=== PATIENT | male | born 1940 | race Caucasian/White ===

== ENCOUNTER 2022-10-01 17:01 | Observation (INO) ==
[2022-10-01 17:35] LABS: ABS Eosinophils 0.2 10^3/uL (0.0-0.5); ABS Lymphocytes 1.6 10^3/uL (1.0-4.8); ABS Monocytes 0.4 10^3/uL (0.0-1.1); ABS Neutrophils 4.2 10^3/uL (1.5-7.6); ABS Nucleated RBC 0.01 10^3/ul; Eosinophil % 2.5 %; Hematocrit 44.9 % (38-53); Hemoglobin 15.5 g/dL (13.2-16.3); Lymphocyte % 25.1 %; Mean Corpuscular Hemoglobin 30.3 pg (27-33); Mean Corpuscular Hgb Conc 34.4 g/dL (31-36); Mean Corpuscular Volume 88.1 fL (80-97); Mean Platelet Volume 7.5 fL (7.5-11.2); Nucleated Red Blood Cells % 0.2 /100 WBC (0.0-0.4); Platelet Count 214 10^3/uL (150-450); Red Cell Distribution Width 13.1 % (12-17); White Blood Count 6.5 10^3/uL (3.6-10.2)
[2022-10-01 17:40] LABS: INR 1.05 (0.88-1.18)
[2022-10-01 17:55] LABS: ALT 19 U/L (7-52); Albumin 4.1 g/dL (3.2-5.2); Albumin/Globulin Ratio 1.5 (1-3); Alkaline Phosphatase 112 U/L (35-149); Blood Urea Nitrogen 27 mg/dL (6-24); CO2 Carbon Dioxide 27 mmol/L (22-32); Calcium 9.1 mg/dL (8.6-10.3); Chloride 104 mmol/L (101-111); Creatinine, Serum 1.07 mg/dL (0.67-1.17); Globulin 2.7 g/dL (2-4); Glucose 114 mg/dL (70-100); Sodium 140 mmol/L (135-145); Total Protein 6.8 g/dL (6.4-8.9); eGFR CKD-EPI 70.2 (>60)
[2022-10-01 17:57] LABS: High Sens Troponin Baseline 20 pg/mL (<20)
[2022-10-01 17:59] LABS: Anion Gap 9 mmol/L (2-16)
[2022-10-01 18:56] LABS: Potassium Redraw 3.7 mmol/L (3.5-5.0)
[2022-10-01] MEDS ORDERED: hydrALAZINE 20 mg/ml 1 ML Vial IV IV SLOW PU ONE (19:47)
[2022-10-01] MEDS: Enoxaparin 40 MG/0.4 ML SYR SUBCUT SCH (20:25)
[2022-10-01] MEDS ORDERED: Potassium Chlor 20 meq TAB.ER PO ONE (20:33)
[2022-10-01 20:56] LABS: Magnesium 2.2 mg/dL (1.9-2.7)
[2022-10-01] MEDS ORDERED: Iohexol 350 (CONTRAST) 500 ML MDV IV ONE (21:12)
[2022-10-02 06:12] LABS: Hematocrit 45.3 % (38-53); Mean Corpuscular Hemoglobin 30.7 pg (27-33); Mean Corpuscular Hgb Conc 35.4 g/dL (31-36); Mean Corpuscular Volume 86.7 fL (80-97); Platelet Count 213 10^3/uL (150-450); Red Blood Count 5.23 10^6/uL (4.06-5.63); Red Cell Distribution Width 13.1 % (12-17); White Blood Count 6.2 10^3/uL (3.6-10.2)
[2022-10-02 06:25] LABS: Albumin 4.1 g/dL (3.2-5.2); Albumin/Globulin Ratio 1.6 (1-3); Creatinine, Serum 0.92 mg/dL (0.67-1.17); Globulin 2.5 g/dL (2-4); HDL Cholesterol 36.4 mg/dL; Magnesium 2.2 mg/dL (1.9-2.7); Total Bilirubin 0.8 mg/dL (0.2-1.0); Total Protein 6.6 g/dL (6.4-8.9); eGFR CKD-EPI 84.1 (>60)
[2022-10-02] MEDS: ETHACRYNIC ACID 25 MG PO SCH (08:44)
[2022-10-02] MEDS ORDERED: Sulfur Hexaflouride MICROSPHR 25 MG VIAL ONE (09:11)
[2022-10-02] MEDS ORDERED: Aminophylline 25 MG/ML VIAL ONE (13:21)
[2022-10-02] MEDS ORDERED: Regadenoson 0.4 MG/5 ML SYRINGE ONE (13:21)
[2022-10-02] MEDS: Enoxaparin 40 MG/0.4 ML SYR SUBCUT SCH (20:58)
[2022-10-03 06:45] LABS: Hemoglobin 15.9 g/dL (13.2-16.3); Mean Corpuscular Hemoglobin 30.7 pg (27-33); Mean Corpuscular Hgb Conc 34.6 g/dL (31-36); Mean Corpuscular Volume 88.7 fL (80-97); Mean Platelet Volume 7.9 fL (7.5-11.2); Platelet Count 212 10^3/uL (150-450); Red Blood Count 5.18 10^6/uL (4.06-5.63)
[2022-10-03 06:52] LABS: CO2 Carbon Dioxide 31 mmol/L (22-32); Calcium 9.2 mg/dL (8.6-10.3); Chloride 104 mmol/L (101-111); Sodium 140 mmol/L (135-145)
[2022-10-03 06:55] LABS: Anion Gap 5 mmol/L (2-16)
[2022-10-03 06:58] LABS: Blood Urea Nitrogen 25 mg/dL (6-24); Creatinine, Serum 1.12 mg/dL (0.67-1.17); Glucose 103 mg/dL (70-100); eGFR CKD-EPI 66.4 (>60)
[2022-10-03] MEDS: ETHACRYNIC ACID 25 MG PO SCH (07:25)
[2022-10-03 08:43] LABS: Magnesium 2.2 mg/dL (1.9-2.7); Potassium Redraw 3.7 mmol/L (3.5-5.0)
[2022-10-03 11:46] VITALS: BP 126/72
== END 2022-10-03 13:05 | disposition home or self-care (01) ==
LOC: EDHOLD 17:01 → ED 17:01 → SUATTDRO 20:10 → MEDTELE 22:56
PROVIDERS: ADMIT Internal Medicine; ATTEND Internal Medicine